=== PATIENT | female | born 1965 | race Two or more races ===

== ENCOUNTER 2022-07-25 09:32 | Emergency (ER) | payer OTHER ==
[~2022-07-25] VITALS: Ht 170.2 cm; Wt 90.0 kg
[2022-07-25 11:36] VITALS: BP 180/100
[2022-07-25] MEDS ORDERED: KETOROLAC TROMETH 30 MG/ML 1ML VIAL IV ONE (12:30)
[2022-07-25] MEDS ORDERED: IBUP800T26 PO (14:50)
[2022-07-25] MEDS ORDERED: HYDR-4798 PO (14:50)
[2022-07-25 15:45] LABS: Urine Bacteria FEW /hpf (None Seen); Urine Blood Negative /uL (Negative); Urine Specific Gravity 1.027 (1.001-1.035); Urine WBC 5 /hpf (0 - 5)
== END 2022-07-25 14:30 | disposition home or self-care (01) ==
LOC: ER 09:32
DX: M47.816 Spondylosis without myelopathy or radiculopathy, lumbar region (principal); M54.40 Lumbago with sciatica, unspecified side
CPT/HCPCS: 72100; 81001; 96374; 99284; J1885